=== PATIENT | male | born 1985 | race Caucasian/White ===

== ENCOUNTER 2018-11-13 15:13 | Emergency (ER) | payer MEDICAID ==
[~2018-11-13] VITALS: Ht 188 cm; Wt 70.6 kg
[~2018-11-13 15:13] MED LIST: CLON1TAB11 PO; SLEEPING PILL; penicillin PO
[2018-11-13 15:36] LABS: BASOPHILS # (AUTO) 0.03 x10^3/uL (0-0.1); BASOPHILS % (AUTO) 0 % (0-1); EOSINOPHILS # (AUTO) 0.13 x10^3/uL (0-0.4); EOSINOPHILS % (AUTO) 2 % (1-7); LYMPHOCYTES # (AUTO) 2.05 x10^3/uL (1-3.4); LYMPHOCYTES % (AUTO) 31 % (22-44); MD NO; MEAN CORPUSCULAR HEMOGLOBIN 31.5 pg (27.5-34.5); MEAN CORPUSCULAR HGB CONC 33.8 g/dL (33.2-36.2); MEAN CORPUSCULAR VOLUME 93.1 fL (81-97); MEAN PLATELET VOLUME 7.6 fL (7.4-10.4); MONOCYTES # (AUTO) 0.69 x10^3/uL (0.2-0.8); MONOCYTES % (AUTO) 11 % (2-9); NEUTROPHILS # (AUTO) 3.63 x10^3/uL (1.8-6.8); NEUTROPHILS % (AUTO) 56 % (42-75); PLATELET COUNT 236 x10^3/uL (130-400); RED BLOOD COUNT 4.92 x10^6/uL (4.38-5.82); RED CELL DISTRIBUTION WIDTH 15.3 % (9.4-14.8)
[2018-11-13 15:47] LABS: ALANINE AMINOTRANSFERASE 22 U/L (12-78); ALBUMIN 3.8 g/dL (3.4-5.0); ANION GAP 3 mmol/L (5-15); CALCIUM 8.7 mg/dL (8.5-10.1); CHLORIDE 108 mmol/L (98-107)
[2018-11-13 15:50] LABS: ALKALINE PHOSPHATASE 53 U/L (45-117); BILIRUBIN,TOTAL 0.3 mg/dL (0.2-1.0); TOTAL PROTEIN 6.6 g/dL (6.4-8.2)
[2018-11-13] MEDS ORDERED: HYDROmorphone 2 MG/ML, 1ML ONE (16:29)
[2018-11-13] MEDS ORDERED: HYDROmorphone 1 MG/ML, 1ML INJ IM ONE (16:30)
--- NOTE | 2018-11-13 16:35 | NUR ---
PT MEDICATED OREDERED. WAITING FOR CT.
--- NOTE | 2018-11-13 17:03 | NUR ---
Break Coverage: assumed care of pt on behalf of primary RN for lunch break only. pt has returned from CT. Resting on gurney in position of comfort on cell phone. no apparent distress
--- NOTE | 2018-11-13 17:35 | NUR ---
break coverage: Dr. Lockett at bedside for eval
[2018-11-13 17:54] VITALS: BP 118/77
== END 2018-11-13 17:56 | disposition home or self-care (01) ==
LOC: ED 16:51
DX: K40.90 Unilateral inguinal hernia, without obstruction or gangrene, not specified as recurrent (principal); G89.29 Other chronic pain; R10.31 Right lower quadrant pain; F41.1 Generalized anxiety disorder
CPT/HCPCS: 36415; 74176; 80053; 85025; 96372; 99284; J1170

== ENCOUNTER 2018-12-08 14:21 | Emergency (ER) | payer MEDICAID ==
[~2018-12-08] VITALS: Ht 188 cm; Wt 70.0 kg
[2018-12-08 14:39] VITALS: BP 98/71
--- NOTE | 2018-12-08 15:14 | NUR ---
PT HERE FOR RIGHT INGUINAL HERNIA X 1 DAY. PT REPORTS HE HAD SURGERY LAST YEAR HOWEVER HIS DOG JUMPED ON HIM TODAY AND HE FELT A PAIN RETURN TO THE AREA SIMILAR TO THAT OF THE HERNIA BEFORE. PT REPORTS HE DOES NOT SEE THE HERNIA OR ANY ABNORMALITY BUT DOES HAVE THE PAIN. PT RESTING IN ROOM AND AWAITING FURTHER ORDERS.
[2018-12-08] MEDS ORDERED: ACETAMINOPHEN 500 MG TABLET ONE (15:21)
--- NOTE | 2018-12-08 15:28 | NUR ---
PT MEDICATED PER EMAR.
[2018-12-08] MEDS ORDERED: ACETAMINOPHEN 500 MG TABLET PO ONE (15:30)
--- NOTE | 2018-12-08 15:35 | NUR ---
PT AFTER BEING MEDICATED PER EMAR AND ELOPED PRIOR TO BEING SEEN BY MD.
== END 2018-12-08 15:39 | disposition left against medical advice (07) ==
LOC: ED 15:33
DX: S39.011A Strain of muscle, fascia and tendon of abdomen, initial encounter (principal); F41.1 Generalized anxiety disorder; X58.XXXA Exposure to other specified factors, initial encounter; Y93.89 Activity, other specified; Y92.89 Other specified places as the place of occurrence of the external cause; Y99.8 Other external cause status
CPT/HCPCS: 99282

== ENCOUNTER 2019-01-11 13:39 | Emergency (ER) | payer MEDICAID ==
[~2019-01-11] VITALS: Ht 182.9 cm; Wt 70.9 kg
[2019-01-11 14:43] VITALS: BP 119/71
== END 2019-01-11 14:55 | disposition home or self-care (01) ==
LOC: ED 14:49
DX: R10.30 Lower abdominal pain, unspecified (principal); Z87.891 Personal history of nicotine dependence
CPT/HCPCS: 99281; 99283

== ENCOUNTER 2019-12-27 18:08 | Emergency (ER) | payer MEDICAID ==
[~2019-12-27] VITALS: Ht 188 cm; Wt 67.5 kg
[2019-12-27 18:41] VITALS: BP 119/69
--- NOTE | 2019-12-27 20:54 | NUR ---
PT PROVIDED WITH AN ICE PACK, FOOT OF BED ELEVATED. GIVEN WARM BLANKETS, AND EDUCATED RADIATION PHYSICIST LIGHT. PT DENIES ANY FURTHER NEEDS OR CONCERNS AT THIS TIME. CALL LIGHT IN REACH.
== END 2019-12-27 22:29 | disposition home or self-care (01) ==
LOC: ED 22:02
DX: S92.355A Nondisplaced fracture of fifth metatarsal bone, left foot, initial encounter for closed fracture (principal); F17.200 Nicotine dependence, unspecified, uncomplicated; W22.8XXA Striking against or struck by other objects, initial encounter; Y93.89 Activity, other specified; Y92.009 Unspecified place in unspecified non-institutional (private) residence as the place of occurrence of the external cause; Y99.8 Other external cause status
CPT/HCPCS: 29515; 99283

== ENCOUNTER 2020-06-17 05:14 | Emergency (ER) | payer MEDICAID ==
[~2020-06-17] VITALS: Ht 188 cm; Wt 71.7 kg
[2020-06-17] MEDS ORDERED: ACETAMINOPHEN 500 MG TABLET PO ONE (05:30)
[2020-06-17] MEDS ORDERED: HYDROcodone/APAP 5/325 TABLET ONE (06:27)
[2020-06-17] MEDS ORDERED: HYDROcodone/APAP 5/325 TABLET PO ONE (06:30)
[2020-06-17 06:44] VITALS: BP 110/71
== END 2020-06-17 06:47 | disposition home or self-care (01) ==
LOC: ED 05:51
DX: S63.653A Sprain of metacarpophalangeal joint of left middle finger, initial encounter (principal); S63.655A Sprain of metacarpophalangeal joint of left ring finger, initial encounter; X58.XXXA Exposure to other specified factors, initial encounter; Y93.89 Activity, other specified; Y92.098 Other place in other non-institutional residence as the place of occurrence of the external cause; Y99.8 Other external cause status
CPT/HCPCS: 29125; 99283